=== PATIENT | female | born 1960 | race Caucasian/White ===

== ENCOUNTER → 2016-11-12 | Outpatient (CLI) | payer OTHER ==
[~2016-11-12] MED LIST: CALCIUM ACETAT667 MG PO; COREG 3.125M3.125 MG PO; LEVOTHYROXINE150 MCG PO; NORCO 5-325 TA1 EACH PO; NORVASC 5 MG TAB5 MG PO; PRAVACHOL40 MG PO; RANITIDINE HCL300 MG PO; ZOFRAN4 MG PO
== END ==
LOC: US 09:30
DX: R10.9 Unspecified abdominal pain (principal); D69.6 Thrombocytopenia, unspecified
CPT/HCPCS: 76705

== ENCOUNTER → 2016-11-20 | Outpatient (CLI) | payer OTHER | LOC: KOH-I 12:00 | DX: R31.9 Hematuria, unspecified (principal); R91.8 Other nonspecific abnormal finding of lung field | CPT/HCPCS: 74176 ==

== ENCOUNTER → 2016-11-21 | Outpatient (CLI) | payer OTHER ==
[2016-11-21 13:21] LABS: HEMOGLOBIN 14.8 gm/dl (12.3-15.3); RED BLOOD COUNT 4.99 M/UL (4.00-5.10); WHITE BLOOD COUNT 5.4 K/UL (4.5-11.0)
== END ==
LOC: LAB 12:53
PROVIDERS: Physician Assistant
DX: D69.6 Thrombocytopenia, unspecified (principal); R80.9 Proteinuria, unspecified
CPT/HCPCS: 36415; 80048; 85025

== ENCOUNTER → 2017-01-20 | Outpatient (CLI) | payer OTHER | LOC: LAB 07:55 | DX: R19.7 Diarrhea, unspecified (principal) | CPT/HCPCS: 36415 ==

== ENCOUNTER → 2017-02-20 | Outpatient (CLI) | payer OTHER | LOC: LAB 11:33 | DX: M31.0 Hypersensitivity angiitis (principal) | CPT/HCPCS: 36415 ==

== ENCOUNTER → 2017-05-27 | Outpatient (CLI) | payer OTHER | LOC: LAB 13:54 | DX: M31.0 Hypersensitivity angiitis (principal) ==

== ENCOUNTER 2020-11-20 18:34 | Emergency (ER) | payer MEDICARE, OTHER ==
[2020-11-20] MEDS ORDERED: HYDROCODON-ACE1 EAC4 PO (19:52)
== END 2020-11-20 20:00 | disposition home or self-care (01) ==
LOC: ER1 18:34
DX: S63.502A Unspecified sprain of left wrist, initial encounter (principal); I12.0 Hypertensive chronic kidney disease with stage 5 chronic kidney disease or end stage renal disease; N18.6 End stage renal disease; Z99.2 Dependence on renal dialysis; W19.XXXA Unspecified fall, initial encounter; Y92.009 Unspecified place in unspecified non-institutional (private) residence as the place of occurrence of the external cause
CPT/HCPCS: 29125; 73110; 99283

== ENCOUNTER → 2021-08-06 | Outpatient (CLI) | payer MEDICARE, OTHER ==
[~2021-08-06] MED LIST changes: +HYDROCODON-ACE1 EAC4 PO
== END ==
LOC: LAB 13:24
DX: D84.9 Immunodeficiency, unspecified (principal); Z94.0 Kidney transplant status
CPT/HCPCS: 36415; 87497

== ENCOUNTER → 2021-10-15 | Outpatient (CLI) | payer MEDICARE, OTHER ==
[2021-10-15 10:44] LABS: HEMOGLOBIN 9.2 gm/dl (12.3-15.3); RED BLOOD COUNT 3.19 M/UL (4.00-5.10); WHITE BLOOD COUNT 4.2 K/UL (4.5-11.0)
== END ==
LOC: LAB 09:20
PROVIDERS: Internal Medicine Nephrology
DX: D64.9 Anemia, unspecified (principal); R39.9 Unspecified symptoms and signs involving the genitourinary system; Z94.0 Kidney transplant status; Z79.899 Other long term (current) drug therapy; R79.89 Other specified abnormal findings of blood chemistry
CPT/HCPCS: 36415; 80069; 80197; 82570; 83735; 84156; 85025; 87086

== ENCOUNTER → 2021-11-03 | Outpatient (CLI) | payer MEDICARE, OTHER ==
[2021-11-03 09:09] LABS: HEMOGLOBIN 10.4 gm/dl (12.3-15.3); RED BLOOD COUNT 3.59 M/UL (4.00-5.10); WHITE BLOOD COUNT 3.1 K/UL (4.5-11.0)
== END ==
LOC: LAB 08:35
PROVIDERS: Internal Medicine Nephrology
DX: R39.9 Unspecified symptoms and signs involving the genitourinary system (principal); D64.9 Anemia, unspecified; R79.89 Other specified abnormal findings of blood chemistry; Z94.0 Kidney transplant status; Z51.81 Encounter for therapeutic drug level monitoring; Z79.899 Other long term (current) drug therapy
CPT/HCPCS: 36415; 80069; 80197; 81001; 82570; 83735; 84156; 85025; 87086

== ENCOUNTER → 2022-01-11 | Outpatient (CLI) | payer MEDICARE, OTHER ==
[2022-01-11 09:55] LABS: HEMOGLOBIN 12.8 gm/dl (12.3-15.3); RED BLOOD COUNT 4.61 M/UL (4.00-5.10); WHITE BLOOD COUNT 4.1 K/UL (4.5-11.0)
== END ==
LOC: LAB 09:24
PROVIDERS: Internal Medicine Nephrology
DX: Z48.22 Encounter for aftercare following kidney transplant (principal); Z51.81 Encounter for therapeutic drug level monitoring; R39.9 Unspecified symptoms and signs involving the genitourinary system; R79.89 Other specified abnormal findings of blood chemistry; D64.9 Anemia, unspecified; Z94.0 Kidney transplant status; Z79.899 Other long term (current) drug therapy
CPT/HCPCS: 36415; 80069; 80197; 82570; 83735; 84156; 85025; 87086

== ENCOUNTER → 2022-03-15 | Outpatient (CLI) | payer MEDICARE, OTHER ==
[2022-03-15 09:33] LABS: HEMOGLOBIN 11.2 gm/dl (12.3-15.3); RED BLOOD COUNT 4.02 M/UL (4.00-5.10)
== END ==
LOC: LAB 08:29
PROVIDERS: Internal Medicine Nephrology
DX: Z48.22 Encounter for aftercare following kidney transplant (principal); R39.9 Unspecified symptoms and signs involving the genitourinary system; D64.9 Anemia, unspecified; R79.89 Other specified abnormal findings of blood chemistry; Z51.81 Encounter for therapeutic drug level monitoring; Z79.899 Other long term (current) drug therapy
CPT/HCPCS: 36415; 80069; 80197; 82570; 83735; 84156; 85025; 87086

== ENCOUNTER → 2022-05-22 | Outpatient (CLI) | payer MEDICARE, OTHER | LOC: RAD 12:14 | DX: R05.9 Cough, unspecified (principal) | CPT/HCPCS: 71046 ==